=== PATIENT | female | born 1955 | race Caucasian/White ===

== ENCOUNTER 2022-10-26 21:46 | Emergency (ER) | payer MEDICARE, MEDICAID, SELFPAY ==
[2022-10-26 21:48] VITALS: BP 125/58; PULSE 82; RESP 16; TEMP 37.7; O2SAT 86
[2022-10-26 21:54] VITALS: O2SAT 95
--- NOTE | 2022-10-26 22:27 | EDS_ITS ---
HPI History of Present Illness Chief Complaint: Fall Detail of Chief Complaint: Apparently patient fell and had outpatient x-ray that revealed a right infe Informant: patient Onset/Context/Timing Onset: - (Patient unable to tell me) Context: - (Unknown) Timing: - (Unknown) Quality: Unknown Location: Right pelvic fracture Current Severity: Gone Maximum Severity: Unknown Worsened by: Unknown Relieved by: Unknown Associated Symptoms Associated Symptoms: Unable to determine Narrative Narrative: Patient is a 67-year-old woman with schizophrenia, significant dementia who apparently fell. She had outpatient x-ray which revealed a superior and inferior pubic rami fracture. When patient was asked why she was here she held up her stuffed dog and mumbled something. Asked if she had pain she replied no. Asked if she was short of breath she replied no. Asked if she has chest discomfort she replied no. Asked if her arms or legs hurt she replied no. Asked if her head hurt she replied no Prior similar symptoms: No PFSH PFSH Medical History Anxiety Calculus of gallbladder and bile duct w/o cholecystitis or obstruction Cerebral infarction CKD (chronic kidney disease) stage 3, GFR 30-59 ml/min COPD (chronic obstructive pulmonary disease) Coronary atherosclerosis due to calcified coronary lesion Dementia GERD (gastroesophageal reflux disease) HTN (hypertension) Hyperkalemia Hyperlipidemia Hypothyroidism Insomnia Legal blindness Major depressive disorder Metabolic encephalopathy Muscle wasting Pseudobulbar affect Schizophreniform disorder Type II diabetes mellitus Ulcerative colitis Unspecified fracture of left lower leg, sequela Vitreous hemorrhage Wedge compression fracture of second lumbar vertebra, sequela Social History Smoking Status: Unknown if ever smoked ROS ROS ED Review of Systems ROS Unobtainable: due to mental status EXAM Physical Exam Const Vital Signs: 10/26/22 21:48 10/26/22 21:54 10/26/22 22:01 Temperature 99.9 F H Temperature Source Temporal Pulse Rate 82 Respiratory Rate 16 Respiratory Effort Normal Non-Labored Respiratory Depth Normal Respiratory Pattern Normal Blood Pressure 125/58 H Blood Pressure Mean 80 Pulse Ox 86 95 Oxygen Delivery Method Room Air Nasal Cannula Nasal Cannula Oxygen Flow Rate (L/min) 3 3 Positive well nourished, well developed and obese General Appearance ED: well developed and NAD Nutritional Appearance: obese HEENT Reports moist mucous membranes HEENT Narrative: No evidence of head trauma. No clinical signs of basilar skull fracture. No dental trauma. No septal deviation hematoma. Eyes PERRL and EOMs intact bilaterally General Eye ED: Negative for pale conjunctiva or scleral icterus Neck no lymphadenopathy, supple and no JVD Chest Wall inspection of chest normal and palpation of chest normal Resp normal respiratory effort and clear to auscultation bilaterally Cardio regular rate, regular rhythm, S1 normal heart sound, S2 normal heart sound and no murmurs GI normal to inspection, nondistended, normoactive bowel sounds, non-tender, non- distended and no masses; Negative for hepatosplenomegaly GI Narrative: Pain the patient of the pelvis on the right. Extremity normal to inspection General Extremety ED: Yes edema General Extremity: edema Neuro oriented x3, CN's II-XII intact bilaterally and no sensory deficits noted Psych Psych Narrative: Unable to determine Skin no rashes or lesions noted and no wounds MDM MDM MDM Narrative Medical decision making narrative: Contacted the senior care why she was sent in. Apparently the nurse practitioner sent her in to determine if this required operative intervention. The nurse at the nurse visit was told that this does not require operative intervention should be discharged to home. History & Record Review Additional record(s) reviewed:: Prior outpatient record (X-ray of the pelvis reveals inferior and superior pubic rami fracture.) and Other (Records that accompany patient from nursing facility.) Treatment and Re-Evaluation :: Patient was discharged back to the nursing facility. Discharge Plan Triage Chief Complaint: Fall ED Provider: Flo Dey Dx/Rx/DC Orders Clinical Impression: Closed fracture of right superior pubic ramus, Fracture of right inferior pubic ramus, Injury due to fall Instructions: ED Pelvic Fracture Primary Care Provider: Dwayne Bradford Referrals: Dwayne Bradford MD [Primary Care Provider] - As Needed Disposition Disposition: Home, Self Care
[2022-10-26 23:26] VITALS: BP 121/74; PULSE 78; RESP 14; O2SAT 95
--- NOTE | 2022-10-26 23:28 | ED.RN ---
CALL PLACED TO NURSE AT [facility] FOR FURTHER DETAILS ON PT'S TRANSFER TO [facility]. NURSE STATES CRATE LINER WANTED TO KNOW IF THERE WAS ANYTHING TO BE DONE ABOUT A PELVIC FRACTURE. NURSE FURTHER ASKED IF IT WAS HIP OR PELVIS THAT WAS BROKEN. THIS RN ADVISED NURSE ACCORDING TO RADIOLOGY REPORT THAT WAS SENT WITH PT, IT WAS AN INFERIOR AND SUPERIOR PUBIC RAMI FRACTURE. NURSE VOICED UNDERSTANDING. THIS RN ALSO ADVISED THAT ED MD RECOMMENDS NO SURGICAL INTERVENTIONS. NURSE VOICED UNDERSTANDING AND STATED OK, JUST SEND HER BACK THEN. MD UPDATED ON CONVERSATION.
[2022-10-26 23:48] VITALS: BP 136/78; PULSE 73; RESP 14; O2SAT 95
== END 2022-10-27 04:29 | disposition skilled nursing facility (03) ==
PROVIDERS: Emergency Provider Emergency Medicine; PCP Family Medicine; Visit Provider Emergency Medicine
DX: S32.511A Fracture of superior rim of right pubis, initial encounter for closed fracture (principal); F20.9 Schizophrenia, unspecified; S32.591A Other specified fracture of right pubis, initial encounter for closed fracture; F03.90 Unspecified dementia, unspecified severity, without behavioral disturbance, psychotic disturbance, mood disturbance, and anxiety; W19.XXXA Unspecified fall, initial encounter
CPT/HCPCS: 99285